=== PATIENT | female | born 1950 | race Caucasian/White ===

== ENCOUNTER 2017-12-17 08:00 | Inpatient (IN) | payer MEDICARE, OTHER ==
[2017-12-17] MEDS: ONDANSETRON 4 MG INJ IV ×3 (10:47→14:46)
[2017-12-17] MEDS: PIPER-TAZO 3.375 GM IV (PMX) 100 ML IVPB (10:47)
[2017-12-17] MEDS: morphine 4 MG/ML VIAL IV ×2 (10:47→13:42)
[2017-12-17 11:27] LABS: ADD UMIC YES; UR ASCORBIC ACID NEGATIVE (NEGATIVE); UR BACTERIA MODERATE /HPF (NONE SEEN); UR BILIRUBIN (Dip) NEGATIVE (NEGATIVE); UR BLOOD (Dip) 1+ mg/dL (NEGATIVE); UR CLARITY TURBID (CLEAR); UR COLOR AMBER (YELLOW); UR GLUCOSE (Dip) NEGATIVE (NEGATIVE); UR KETONES (Dip) NEGATIVE (NEGATIVE); UR LEUKOCYTE ESTERASE (Dip) 3+ Leu/ul (NEGATIVE); UR NITRITE (Dip) NEGATIVE (NEGATIVE); UR RBC 5 /HPF (0-5); UR SPECIFIC GRAVITY (Dip) 1.008 (1.003-1.030); UR SQUAMOUS EPITHELIAL CELL FEW /HPF (FEW); UR TOTAL PROTEIN (Dip) 2+ mg/dl (NEGATIVE); UR UROBILINOGEN (Dip) NEGATIVE (NEGATIVE); UR WBC > 182 /HPF (0-5)
[2017-12-17 12:23] LABS: ADD MAN DIFF? NO
[2017-12-17 12:27] LABS: BASOPHILS % 0.3 % (0.0-2.0); EOSINOPHILS # 0.1 10^3/ul (0.0-0.5); EOSINOPHILS % 1.3 % (0.0-7.0); HEMATOCRIT 28.7 % (37.0-47.0); HEMOGLOBIN 9.6 g/dl (12.0-16.0); LYMPHOCYTES % 19.2 % (15.0-51.0); MEAN CORPUSCULAR HEMOGLOBIN 30.2 pg (29.0-33.0); MEAN CORPUSCULAR HGB CONC 33.4 g/dl (32.0-37.0); MEAN CORPUSCULAR VOLUME 90.3 fl (82.0-101.0); MONOCYTE # 0.8 10^3/ul (0.3-0.9); NEUTROPHIL # 7.3 10^3/ul (1.6-7.5); NEUTROPHILS % 70.8 % (39.0-77.0); PLATELET COUNT 324 10^3/UL (140-415); RED BLOOD COUNT 3.18 10^6/ul (4.20-5.40); RED CELL DISTRIBUTION WIDTH 12.8 % (11.5-14.5)
[2017-12-17 12:27] LABS: WHITE BLOOD COUNT 10.3 10^3/ul (4.8-10.8)
[2017-12-17 12:53] LABS: ALANINE AMINOTRANSFERASE 16 IU/L (13-69); ALBUMIN 4.2 g/dl (3.3-4.9); ALBUMIN/GLOBULIN RATIO 1.05; ALKALINE PHOSPHATASE 109 IU/L (42-121); ANION GAP 18 (8-16); ASPARTATE AMINO TRANSFERASE 20 IU/L (15-46); BLOOD UREA NITROGEN 31 mg/dl (7-20); CALCIUM 9.5 mg/dl (8.4-10.2); CARBON DIOXIDE 25 mmol/L (21-31); CHLORIDE 103 mmol/L (97-110); CREATININE 1.69 mg/dl (0.44-1.00); GLUCOSE 104 mg/dl (70-220); POTASSIUM 4.4 mmol/L (3.5-5.1); SODIUM 142 mmol/L (135-144); TOTAL PROTEIN 8.2 g/dl (6.1-8.1)
[2017-12-17 13:00] LABS: INR 0.93; PROTIME 12.6 Sec (11.9-14.9)
[2017-12-17 13:01] LABS: PARTIAL THROMBOPLASTIN TIME 34.4 Sec (25.0-35.0)
[2017-12-17 13:23] LABS: TROPONIN-I < 0.012 ng/ml (0.00-0.12)
[2017-12-17 13:27] LABS: LACTIC ACID 1.6 mmol/L (0.5-2.0)
[2017-12-17] MEDS ORDERED: ACETAMINOPHEN 325 MG TAB PO (13:30)
[2017-12-17] MEDS ORDERED: ONDANSETRON 4 MG INJ IV (13:30)
[2017-12-17] MEDS: VANCOMYCIN 1 GM (PMX) 250 ML IVPB (13:42)
[2017-12-17] MEDS: HYDROmorphONE 0.5 MG/0.5 ML SYG IV (14:46)
[2017-12-17] MEDS ORDERED: HYDROCODONE/APAP (5/325) TAB PO (17:30)
[2017-12-17] MEDS: LEVOFLOXACIN 500MG/D5W (PMX) 100 ML IVPB (17:30)
[2017-12-17] MEDS ORDERED: VANCOMYCIN IV PER PHARMACY XX (17:30)
[2017-12-17] MEDS: NITROGLYCERIN (SL) 0.4 MG TAB SL ×2 (20:57→21:09)
[2017-12-17] MEDS: PREGABALIN 75 MG CAP PO (21:10)
[2017-12-17] MEDS: DOCUSATE SODIUM 100 MG CAP PO (21:10)
[2017-12-17] MEDS: ATORVASTATIN 10 MG TAB PO (21:10)
[2017-12-17] MEDS: NIFEdipine (XL) 30 MG TAB PO (21:10)
[2017-12-17] MEDS: HEPARIN 5,000 UNIT/0.5 ML VIAL SC (21:12)
[2017-12-17] MEDS: VANCOMYCIN 1 GM 250 ML IVPB (21:13)
[2017-12-17 21:38] LABS: CREATINE KINASE 62 IU/L (23-200)
[2017-12-17 21:51] LABS: CK INDEX 0.7; CK-MB 0.41 ng/ml (0.0-2.4)
[2017-12-17 21:54] LABS: TROPONIN-I < 0.012 ng/ml (0.00-0.12)
[2017-12-17] MEDS: INSULIN GLARGINE [LANtus] 3 ML PEN SC (22:24)
[2017-12-17] MEDS: INSULIN ASPART [NOVOLOG] 3 ML PEN SC (22:26)
[2017-12-18] MEDS: ACCU-CHEK XX ×2 (02:23→21:36)
[2017-12-18 03:24] LABS: ADD MAN DIFF? NO
[2017-12-18 03:25] LABS: BASOPHILS % 0.3 % (0.0-2.0); EOSINOPHILS # 0.2 10^3/ul (0.0-0.5); EOSINOPHILS % 2.5 % (0.0-7.0); HEMATOCRIT 26.2 % (37.0-47.0); HEMOGLOBIN 8.7 g/dl (12.0-16.0); LYMPHOCYTES # 1.5 10^3/ul (0.8-2.9); MEAN CORPUSCULAR HGB CONC 33.2 g/dl (32.0-37.0); MEAN CORPUSCULAR VOLUME 90.3 fl (82.0-101.0); MEAN PLATELET VOLUME 8.9 fl (7.4-10.4); MONOCYTE # 0.6 10^3/ul (0.3-0.9); MONOCYTES % 10.4 % (0.0-11.0); NEUTROPHIL # 3.8 10^3/ul (1.6-7.5); NEUTROPHILS % 62.3 % (39.0-77.0); PLATELET COUNT 279 10^3/UL (140-415); RED CELL DISTRIBUTION WIDTH 12.7 % (11.5-14.5)
[2017-12-18] MEDS: morphine 2 MG INJ IV ×3 (03:26→21:39)
[2017-12-18 03:45] LABS: CREATINE KINASE 57 IU/L (23-200)
[2017-12-18 03:47] LABS: ANION GAP 15 (8-16); BLOOD UREA NITROGEN 27 mg/dl (7-20); CALCIUM 8.9 mg/dl (8.4-10.2); CARBON DIOXIDE 27 mmol/L (21-31); CHLORIDE 107 mmol/L (97-110); CREATININE 1.45 mg/dl (0.44-1.00); GLUCOSE 132 mg/dl (70-220); MAGNESIUM 2.2 mg/dl (1.7-2.5); PHOSPHORUS 4.5 mg/dl (2.5-4.9); POTASSIUM 4.5 mmol/L (3.5-5.1); SODIUM 144 mmol/L (135-144)
[2017-12-18 03:58] LABS: CK INDEX 0.6; CK-MB 0.33 ng/ml (0.0-2.4)
[2017-12-18 04:05] LABS: TROPONIN-I < 0.012 ng/ml (0.00-0.12)
[2017-12-18] MEDS: PANTOPRAZOLE (EC) 40 MG TAB PO (06:03)
[2017-12-18] MEDS: LEVOTHYROXINE 88 MCG TAB PO (06:04)
[2017-12-18] MEDS: INSULIN ASPART [NOVOLOG] 3 ML PEN SC ×4 (07:54→20:09)
[2017-12-18 08:17] LABS: THYROID STIMULATING HORMONE 0.627 MIU/L (0.465-4.680)
[2017-12-18] MEDS: MULTIVITAMINS THERAPEUTIC TAB PO (08:57)
[2017-12-18] MEDS: DOCUSATE SODIUM 100 MG CAP PO ×2 (08:57→20:11)
[2017-12-18] MEDS: FERROUS SULFATE (EC) 325 MG TAB PO (08:57)
[2017-12-18] MEDS: PREGABALIN 75 MG CAP PO ×2 (08:58→20:11)
[2017-12-18] MEDS: LISINOPRIL 10 MG TAB PO (08:59)
[2017-12-18] MEDS: ISOSORBIDE MONONITRATE(SR)30 MG TAB PO (08:59)
[2017-12-18] MEDS: NIFEdipine (XL) 30 MG TAB PO ×2 (08:59→20:15)
[2017-12-18] MEDS: HEPARIN 5,000 UNIT/0.5 ML VIAL SC ×2 (09:00→20:14)
[2017-12-18] MEDS: ATORVASTATIN 10 MG TAB PO (20:11)
[2017-12-18] MEDS: INSULIN GLARGINE [LANtus] 3 ML PEN SC (20:11)
[2017-12-18] MEDS: VANCOMYCIN 1 GM 250 ML IVPB (20:11)
[2017-12-18] MEDS: FAMOTIDINE 20 MG TAB PO (20:12)
[2017-12-19] MEDS: morphine 2 MG INJ IV (04:42)
[2017-12-19] MEDS: PANTOPRAZOLE (EC) 40 MG TAB PO (05:37)
[2017-12-19] MEDS: LEVOTHYROXINE 88 MCG TAB PO (05:37)
[2017-12-19 06:52] LABS: ADD MAN DIFF? NO
[2017-12-19 06:59] LABS: WHITE BLOOD COUNT 6.4 10^3/ul (4.8-10.8)
[2017-12-19 06:59] LABS: BASOPHILS % 0.5 % (0.0-2.0); EOSINOPHILS # 0.2 10^3/ul (0.0-0.5); EOSINOPHILS % 3.7 % (0.0-7.0); HEMATOCRIT 26.5 % (37.0-47.0); HEMOGLOBIN 8.6 g/dl (12.0-16.0); LYMPHOCYTES # 1.8 10^3/ul (0.8-2.9); MEAN CORPUSCULAR HEMOGLOBIN 29.7 pg (29.0-33.0); MEAN CORPUSCULAR HGB CONC 32.5 g/dl (32.0-37.0); MEAN CORPUSCULAR VOLUME 91.4 fl (82.0-101.0); MEAN PLATELET VOLUME 9.4 fl (7.4-10.4); MONOCYTE # 0.6 10^3/ul (0.3-0.9); MONOCYTES % 8.6 % (0.0-11.0); NEUTROPHIL # 3.8 10^3/ul (1.6-7.5); NEUTROPHILS % 58.7 % (39.0-77.0); NUCLEATED RED BLOOD CELLS% 0.3 /100WBC (0.0-0.0); PLATELET COUNT 291 10^3/UL (140-415); RED CELL DISTRIBUTION WIDTH 12.7 % (11.5-14.5)
[2017-12-19 07:16] LABS: IRON 65 ug/dl (35-150)
[2017-12-19 07:17] LABS: ANION GAP 14 (8-16); BLOOD UREA NITROGEN 28 mg/dl (7-20); CALCIUM 8.9 mg/dl (8.4-10.2); CARBON DIOXIDE 27 mmol/L (21-31); CHLORIDE 107 mmol/L (97-110); CREATININE 1.39 mg/dl (0.44-1.00); GLUCOSE 122 mg/dl (70-220); POTASSIUM 4.8 mmol/L (3.5-5.1); SODIUM 143 mmol/L (135-144)
[2017-12-19 07:25] LABS: % IRON SATURATION 25 % SAT (22-52); TOTAL IRON BINDING CAPACITY 263 ug/dl (241-421)
[2017-12-19] MEDS: INSULIN ASPART [NOVOLOG] 3 ML PEN SC ×5 (08:00→21:00)
[2017-12-19] MEDS: HEPARIN 5,000 UNIT/0.5 ML VIAL SC ×2 (09:15→21:45)
[2017-12-19] MEDS: LISINOPRIL 10 MG TAB PO (09:16)
[2017-12-19] MEDS: NIFEdipine (XL) 30 MG TAB PO ×2 (09:16→21:44)
[2017-12-19] MEDS: MULTIVITAMINS THERAPEUTIC TAB PO (09:16)
[2017-12-19] MEDS: FAMOTIDINE 20 MG TAB PO (09:16)
[2017-12-19] MEDS: ISOSORBIDE MONONITRATE(SR)30 MG TAB PO (09:17)
[2017-12-19] MEDS: POLYETHYLENE GLYCOL 17 GM PACKET PO (09:17)
[2017-12-19] MEDS: DOCUSATE SODIUM 100 MG CAP PO ×2 (09:17→21:44)
[2017-12-19] MEDS: PREGABALIN 75 MG CAP PO ×2 (09:17→21:44)
[2017-12-19] MEDS: FERROUS SULFATE (EC) 325 MG TAB PO (09:17)
[2017-12-19] MEDS: LEVOFLOXACIN 500MG/D5W (PMX) 100 ML IVPB (17:54)
[2017-12-19] MEDS: MAGNESIUM HYDROXIDE 30ML CUP PO (21:33)
[2017-12-19] MEDS: VANCOMYCIN 1 GM 250 ML IVPB (21:44)
[2017-12-19] MEDS: ATORVASTATIN 10 MG TAB PO (21:44)
[2017-12-19] MEDS: INSULIN GLARGINE [LANtus] 3 ML PEN SC (21:47)
[2017-12-20] MEDS: ACCU-CHEK XX (02:00)
[2017-12-20] MEDS: LEVOTHYROXINE 88 MCG TAB PO (06:03)
[2017-12-20] MEDS: PANTOPRAZOLE (EC) 40 MG TAB PO (06:03)
[2017-12-20 06:42] LABS: ADD MAN DIFF? NO
[2017-12-20 06:47] LABS: BASOPHILS % 0.6 % (0.0-2.0); EOSINOPHILS # 0.2 10^3/ul (0.0-0.5); HEMATOCRIT 27.9 % (37.0-47.0); HEMOGLOBIN 9.3 g/dl (12.0-16.0); LYMPHOCYTES # 2.2 10^3/ul (0.8-2.9); MEAN CORPUSCULAR HGB CONC 33.3 g/dl (32.0-37.0); MEAN PLATELET VOLUME 9.4 fl (7.4-10.4); MONOCYTE # 0.5 10^3/ul (0.3-0.9); MONOCYTES % 6.3 % (0.0-11.0); NEUTROPHIL # 4.3 10^3/ul (1.6-7.5); NEUTROPHILS % 58.9 % (39.0-77.0); PLATELET COUNT 333 10^3/UL (140-415); RED CELL DISTRIBUTION WIDTH 12.7 % (11.5-14.5)
[2017-12-20 06:47] LABS: WHITE BLOOD COUNT 7.3 10^3/ul (4.8-10.8)
[2017-12-20 07:36] LABS: ANION GAP 15 (8-16); BLOOD UREA NITROGEN 33 mg/dl (7-20); CALCIUM 9.1 mg/dl (8.4-10.2); CARBON DIOXIDE 29 mmol/L (21-31); CHLORIDE 106 mmol/L (97-110); CREATININE 1.43 mg/dl (0.44-1.00); GLUCOSE 123 mg/dl (70-220); POTASSIUM 4.8 mmol/L (3.5-5.1); SODIUM 145 mmol/L (135-144)
[2017-12-20] MEDS: INSULIN ASPART [NOVOLOG] 3 ML PEN SC ×7 (08:00→20:32)
[2017-12-20] MEDS: HEPARIN 5,000 UNIT/0.5 ML VIAL SC ×2 (08:31→20:35)
[2017-12-20] MEDS: POLYETHYLENE GLYCOL 17 GM PACKET PO (08:35)
[2017-12-20] MEDS: MULTIVITAMINS THERAPEUTIC TAB PO (08:35)
[2017-12-20] MEDS: FAMOTIDINE 20 MG TAB PO (08:35)
[2017-12-20] MEDS: FERROUS SULFATE (EC) 325 MG TAB PO (08:35)
[2017-12-20] MEDS: DOCUSATE SODIUM 100 MG CAP PO ×2 (08:35→20:31)
[2017-12-20] MEDS: PREGABALIN 75 MG CAP PO ×2 (08:35→20:31)
[2017-12-20] MEDS: ISOSORBIDE MONONITRATE(SR)30 MG TAB PO (08:36)
[2017-12-20] MEDS: LISINOPRIL 10 MG TAB PO (08:36)
[2017-12-20] MEDS: NIFEdipine (XL) 30 MG TAB PO ×2 (08:37→20:31)
[2017-12-20] MEDS: BISACODYL 10 MG SUPP PR (12:21)
[2017-12-20 14:07] LABS: OCCULT BLOOD STOOL NEGATIVE (NEGATIVE)
[2017-12-20] MEDS: LEVOFLOXACIN 250MG/D5W (PMX) 50 ML IVPB (17:05)
[2017-12-20] MEDS: ATORVASTATIN 10 MG TAB PO (20:31)
[2017-12-20] MEDS: INSULIN GLARGINE [LANtus] 3 ML PEN SC (20:35)
[2017-12-20] MEDS: MAGNESIUM HYDROXIDE 30ML CUP PO (20:37)
[2017-12-20 20:57] LABS: VANCOMYCIN,TROUGH 9.4 ug/ml (10.0-20.0)
[2017-12-20] MEDS: VANCOMYCIN 1 GM 250 ML IVPB (21:04)
[2017-12-20] MEDS: morphine 2 MG INJ IV (23:02)
[2017-12-21] MEDS: ACCU-CHEK XX (01:35)
[2017-12-21] MEDS: LEVOTHYROXINE 88 MCG TAB PO (06:29)
[2017-12-21] MEDS: PANTOPRAZOLE (EC) 40 MG TAB PO (06:29)
[2017-12-21] MEDS: INSULIN ASPART [NOVOLOG] 3 ML PEN SC ×7 (08:00→20:58)
[2017-12-21] MEDS: HEPARIN 5,000 UNIT/0.5 ML VIAL SC ×2 (08:36→20:58)
[2017-12-21] MEDS: POLYETHYLENE GLYCOL 17 GM PACKET PO (08:37)
[2017-12-21] MEDS: DOCUSATE SODIUM 100 MG CAP PO ×2 (08:37→20:55)
[2017-12-21] MEDS: MULTIVITAMINS THERAPEUTIC TAB PO (08:37)
[2017-12-21] MEDS: FERROUS SULFATE (EC) 325 MG TAB PO (08:37)
[2017-12-21] MEDS: FAMOTIDINE 20 MG TAB PO (08:37)
[2017-12-21] MEDS: PREGABALIN 75 MG CAP PO ×3 (08:37→20:55)
[2017-12-21] MEDS: ISOSORBIDE MONONITRATE(SR)30 MG TAB PO (08:41)
[2017-12-21] MEDS: NIFEdipine (XL) 30 MG TAB PO (08:42)
[2017-12-21] MEDS: LISINOPRIL 10 MG TAB PO (08:42)
[2017-12-21] MEDS: BISACODYL 10 MG SUPP PR (09:51)
[2017-12-21] MEDS: FLUCONAZOLE 200 MG TAB PO (11:57)
[2017-12-21] MEDS: morphine 2 MG INJ IV (11:57)
[2017-12-21] MEDS: MAGNESIUM HYDROXIDE 30ML CUP PO (11:57)
[2017-12-21] MEDS: CEFTRIAXONE 1 GM/50 ML (PMX) 50 ML IVPB (14:47)
[2017-12-21] MEDS ORDERED: VANCOMYCIN 1.25 GM in SOD CHLORIDE 0.9% 250 ML IVPB (18:00)
[2017-12-21] MEDS: LIDOCAINE 1% (MPF) 5 ML VIAL SC (18:10)
[2017-12-21] MEDS: SOD CHLORIDE 0.9% 100 ML (18:30)
[2017-12-21] MEDS: VANCOMYCIN 1.5 GM in SOD CHLORIDE 0.9% 250 ML IVPB (20:55)
[2017-12-21] MEDS: ATORVASTATIN 10 MG TAB PO (20:55)
[2017-12-21] MEDS: NIFEdipine (XL) 60 MG TAB PO (20:56)
[2017-12-21] MEDS: INSULIN GLARGINE [LANtus] 3 ML PEN SC (20:57)
[2017-12-22] MEDS: ACCU-CHEK XX (02:00)
[2017-12-22] MEDS: LEVOTHYROXINE 88 MCG TAB PO (05:52)
[2017-12-22] MEDS: PANTOPRAZOLE (EC) 40 MG TAB PO (05:52)
[2017-12-22] MEDS: POLYETHYLENE GLYCOL 17 GM PACKET PO (08:07)
[2017-12-22] MEDS: PREGABALIN 75 MG CAP PO ×3 (08:08→20:52)
[2017-12-22] MEDS: DOCUSATE SODIUM 100 MG CAP PO ×2 (08:08→20:49)
[2017-12-22] MEDS: MULTIVITAMINS THERAPEUTIC TAB PO (08:08)
[2017-12-22] MEDS: NIFEdipine (XL) 60 MG TAB PO ×2 (08:09→20:50)
[2017-12-22] MEDS: FAMOTIDINE 20 MG TAB PO (08:09)
[2017-12-22] MEDS: FERROUS SULFATE (EC) 325 MG TAB PO (08:09)
[2017-12-22] MEDS: HEPARIN 5,000 UNIT/0.5 ML VIAL SC ×2 (08:10→20:51)
[2017-12-22] MEDS: INSULIN ASPART [NOVOLOG] 3 ML PEN SC ×7 (08:11→21:00)
[2017-12-22] MEDS: LISINOPRIL 20 MG TAB PO (08:13)
[2017-12-22] MEDS: ISOSORBIDE MONONITRATE(SR)30 MG TAB PO (08:18)
[2017-12-22 11:40] LABS: ADD MAN DIFF? NO
[2017-12-22 11:45] LABS: BASOPHIL # 0.1 10^3/ul (0.0-0.1); BASOPHILS % 0.7 % (0.0-2.0); EOSINOPHILS # 0.2 10^3/ul (0.0-0.5); EOSINOPHILS % 3.2 % (0.0-7.0); HEMATOCRIT 25.7 % (37.0-47.0); HEMOGLOBIN 8.4 g/dl (12.0-16.0); LYMPHOCYTES # 1.4 10^3/ul (0.8-2.9); MEAN CORPUSCULAR HEMOGLOBIN 29.8 pg (29.0-33.0); MEAN CORPUSCULAR HGB CONC 32.7 g/dl (32.0-37.0); MEAN CORPUSCULAR VOLUME 91.1 fl (82.0-101.0); MEAN PLATELET VOLUME 9.6 fl (7.4-10.4); MONOCYTE # 0.6 10^3/ul (0.3-0.9); MONOCYTES % 7.7 % (0.0-11.0); NEUTROPHIL # 5.1 10^3/ul (1.6-7.5); NEUTROPHILS % 68.5 % (39.0-77.0); PLATELET COUNT 306 10^3/UL (140-415); RED BLOOD COUNT 2.82 10^6/ul (4.20-5.40); RED CELL DISTRIBUTION WIDTH 12.7 % (11.5-14.5)
[2017-12-22 11:45] LABS: WHITE BLOOD COUNT 7.4 10^3/ul (4.8-10.8)
[2017-12-22 12:02] LABS: ANION GAP 13 (8-16); BLOOD UREA NITROGEN 37 mg/dl (7-20); CALCIUM 8.8 mg/dl (8.4-10.2); CARBON DIOXIDE 27 mmol/L (21-31); CHLORIDE 104 mmol/L (97-110); CREATININE 1.42 mg/dl (0.44-1.00); GLUCOSE 161 mg/dl (70-220); MAGNESIUM 2.6 mg/dl (1.7-2.5); POTASSIUM 4.9 mmol/L (3.5-5.1); SODIUM 139 mmol/L (135-144)
[2017-12-22] MEDS: MAGNESIUM HYDROXIDE 30ML CUP PO (13:45)
[2017-12-22] MEDS: CEFTRIAXONE 1 GM/50 ML (PMX) 50 ML IVPB (13:50)
[2017-12-22] MEDS: VANCOMYCIN 1.5 GM in SOD CHLORIDE 0.9% 250 ML IVPB (18:00)
[2017-12-22] MEDS: INSULIN GLARGINE [LANtus] 3 ML PEN SC (20:48)
[2017-12-22] MEDS: ATORVASTATIN 10 MG TAB PO (20:49)
[2017-12-23] MEDS: ACETAMINOPHEN 325 MG TAB PO (00:05)
[2017-12-23] MEDS: ACCU-CHEK XX (02:00)
[2017-12-23] MEDS: LEVOTHYROXINE 88 MCG TAB PO (06:15)
[2017-12-23] MEDS: PANTOPRAZOLE (EC) 40 MG TAB PO (06:15)
[2017-12-23 07:27] LABS: ADD MAN DIFF? NO
[2017-12-23 07:39] LABS: WHITE BLOOD COUNT 7.7 10^3/ul (4.8-10.8)
[2017-12-23 07:39] LABS: BASOPHILS % 0.5 % (0.0-2.0); EOSINOPHILS # 0.3 10^3/ul (0.0-0.5); EOSINOPHILS % 3.9 % (0.0-7.0); HEMATOCRIT 25.3 % (37.0-47.0); HEMOGLOBIN 8.5 g/dl (12.0-16.0); LYMPHOCYTES % 25.3 % (15.0-51.0); MEAN CORPUSCULAR HEMOGLOBIN 30.5 pg (29.0-33.0); MEAN CORPUSCULAR HGB CONC 33.6 g/dl (32.0-37.0); MEAN CORPUSCULAR VOLUME 90.7 fl (82.0-101.0); MEAN PLATELET VOLUME 9.7 fl (7.4-10.4); MONOCYTE # 0.6 10^3/ul (0.3-0.9); MONOCYTES % 7.5 % (0.0-11.0); NEUTROPHIL # 4.8 10^3/ul (1.6-7.5); PLATELET COUNT 305 10^3/UL (140-415); RED BLOOD COUNT 2.79 10^6/ul (4.20-5.40); RED CELL DISTRIBUTION WIDTH 12.6 % (11.5-14.5)
[2017-12-23] MEDS: INSULIN ASPART [NOVOLOG] 3 ML PEN SC ×7 (08:00→20:48)
[2017-12-23 08:11] LABS: ANION GAP 15 (8-16); BLOOD UREA NITROGEN 40 mg/dl (7-20); CALCIUM 8.7 mg/dl (8.4-10.2); CARBON DIOXIDE 27 mmol/L (21-31); CHLORIDE 106 mmol/L (97-110); CREATININE 1.47 mg/dl (0.44-1.00); GLUCOSE 129 mg/dl (70-220); POTASSIUM 5.1 mmol/L (3.5-5.1); SODIUM 143 mmol/L (135-144)
[2017-12-23] MEDS: POLYETHYLENE GLYCOL 17 GM PACKET PO (08:21)
[2017-12-23] MEDS: PREGABALIN 75 MG CAP PO ×3 (08:21→20:52)
[2017-12-23] MEDS: FAMOTIDINE 20 MG TAB PO (08:21)
[2017-12-23] MEDS: DOCUSATE SODIUM 100 MG CAP PO ×2 (08:21→20:52)
[2017-12-23] MEDS: ISOSORBIDE MONONITRATE(SR)30 MG TAB PO (08:21)
[2017-12-23] MEDS: MULTIVITAMINS THERAPEUTIC TAB PO (08:21)
[2017-12-23] MEDS: FERROUS SULFATE (EC) 325 MG TAB PO (08:22)
[2017-12-23] MEDS: LISINOPRIL 20 MG TAB PO (08:22)
[2017-12-23] MEDS: NIFEdipine (XL) 60 MG TAB PO ×2 (08:22→20:52)
[2017-12-23] MEDS: HEPARIN 5,000 UNIT/0.5 ML VIAL SC ×2 (08:25→20:49)
[2017-12-23] MEDS: LORAZEPAM 0.5 MG TAB PO (13:16)
[2017-12-23] MEDS: CEFTRIAXONE 1 GM/50 ML (PMX) 50 ML IVPB (13:17)
[2017-12-23] MEDS: VANCOMYCIN 1.5 GM in SOD CHLORIDE 0.9% 250 ML IVPB (17:26)
[2017-12-23] MEDS: INSULIN GLARGINE [LANtus] 3 ML PEN SC (20:47)
[2017-12-23] MEDS: ATORVASTATIN 10 MG TAB PO (20:52)
== END 2017-12-23 22:29 | disposition home health service (06) | DRG 623 ==
LOC: E/R 08:00 → PP2 13:08
PROC: 0JBQ0ZZ Excision of Right Foot Subcutaneous Tissue and Fascia, Open Approach (ICD-10-PCS; principal; 2017-12-17)
PROC: 02HV33Z Insertion of Infusion Device into Superior Vena Cava, Percutaneous Approach (ICD-10-PCS; 2017-12-21)
DX: E11.628 Type 2 diabetes mellitus with other skin complications (principal); M86.9 Osteomyelitis, unspecified; E11.40 Type 2 diabetes mellitus with diabetic neuropathy, unspecified; E11.22 Type 2 diabetes mellitus with diabetic chronic kidney disease; E11.621 Type 2 diabetes mellitus with foot ulcer; D63.1 Anemia in chronic kidney disease; B37.49 Other urogenital candidiasis; I12.9 Hypertensive chronic kidney disease with stage 1 through stage 4 chronic kidney disease, or unspecified chronic kidney disease; L97.519 Non-pressure chronic ulcer of other part of right foot with unspecified severity; L03.031 Cellulitis of right toe; N18.9 Chronic kidney disease, unspecified; E03.9 Hypothyroidism, unspecified; E78.5 Hyperlipidemia, unspecified; E11.69 Type 2 diabetes mellitus with other specified complication; E66.9 Obesity, unspecified; Z68.34 Body mass index [BMI] 34.0-34.9, adult; I25.10 Atherosclerotic heart disease of native coronary artery without angina pectoris; I73.9 Peripheral vascular disease, unspecified; Z79.4 Long term (current) use of insulin
CPT/HCPCS: 36415; 36569; 71045; 73630; 73718; 76937; 80048; 80053; 80202; 81001; 82270; 82550; 82553; 82728; 82962; 83540; 83605; 83735; 84100; 84443; 84484; 85025; 85610; 85730; 87040; 87070; 87086; 93005; 93922; 93971; 96374; 96375; 96376; 99285-25